=== PATIENT | male | born 1965 | race Caucasian/White ===

== ENCOUNTER 2020-07-06 09:01 | Emergency (ER) | payer BC ==
--- NOTE | 2020-07-06 09:06 | EDM.PDOC ---
ED HPI GENERAL MEDICAL PROBLEM - General Chief Complaint: Upper Extremity Injury/Pain Stated Complaint: right shoulder pain Time Seen by Provider: 07/06/20 09:05 Source of Information: Reports: Patient. Denies: Old Records (No [facility] records available) History Limitations: Reports: No Limitations - History of Present Illness INITIAL COMMENTS - FREE TEXT/NARRATIVE: The patient was brought to the emergency room via basic ambulance transfer with EMT accompaniment with no treatment in route. Note that the patient slipped on some snow and ice off of his truck about 5 feet landing on his right scapular and back region with patient complaining of 10/10 discomfort in this area. He is right-handed and has not injured these areas in the past. He denies any head injury, loss of consciousness, change in mental status, neurological deficits, or other complaints or injuries. The patient denies any chest pain/pressure, heart flutter, orthostasis, orthopnea, paresthesias, recent decreased exercise tolerance, or any other anginal-type symptoms, although the patient was somewhat hypotensive, dizzy and diaphoretic secondary to his pain after the above fall. He did have the breath briefly knocked out of him. The patient also denies any recent fever, cough, wheezing, dyspnea, etc., although moderate posterior right ribs and chest wall pain with inspiration. No recent history of abdominal pain, heartburn, nausea, diarrhea, melena, gross hematochezia, or any food intolerance, including fatty foods, etc.. Onset: Today, Sudden Onset Date: 07/06/20 Onset Time: 07:00 Duration: Constant Location: Reports: Chest (Posterior right chest wall, rib, and scapular region). Denies: Head, Face, Neck, Abdomen, Back, Pelvis, Upper Extremity, Left, Upper Extremity, Right, Radiates to Quality: Reports: Sharp Severity: Severe Improves with: Reports: Rest Worsens with: Reports: Movement Context: Reports: Trauma (As above). Denies: Sick Contact Associated Symptoms: Reports: Chest Pain (Pleurisy as above), Diaphoresis (As above), Shortness of Breath (Briefly secondary to chest wall contusion). 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 [No Known Home Meds] 07/06/20 [History] Past Medical History HEENT History: Reports: Sinusitis, Other (See Below). Denies: Allergic Rhinitis, Cataract, Glaucoma, Hard of Hearing, Impaired Vision, Macular Degeneration, Otitis Media, Retinal Detachment Other HEENT History: Sinusitis requiring surgery as below. Nasal fracture at age 11. Cardiovascular History: Reports: None. Denies: Afib, Aneurysm, Arrhythmia, Blood Clots/VTE/DVT, CAD, Heart Failure, Heart Murmur, High Cholesterol, Hypertension, [place], PVD, Syncope Respiratory History: Reports: Intubation, Previous, Sleep Apnea, Other (See Below). Denies: Asthma, Bronchitis, Recurrent, COPD, Intubation, Difficult, PE, Pneumonia, Recurrent, Pneumothorax, TB Other Respiratory History: Patient is not currently using CPAP. Gastrointestinal History: Reports: None. Denies: Celiac Disease, Cholelithiasis, Chronic Constipation, Colon Polyp, Diverticulosis, Fecal Incontinence, Gastritis, GERD, GI Bleed, Inflammatory Bowel Disease, Irritable Bowel Syndrome, Jaundice, Pancreatitis, PUD Genitourinary History: Reports: None. Denies: Acute Renal Failure, BPH, Chronic Renal Insuffiency, Renal Calculus, Retention, Urinary, STD, Urinary Incontinence, UTI, Recurrent Musculoskeletal History: Reports: Arthritis, Fracture, Neck Pain, Chronic, Osteoarthritis, Other (See Below). Denies: Amputation, Gout, RA, SLE Other Musculoskeletal History: Digit #5 of the left foot at about age 13. Neurological History: Reports: None. Denies: Cerebral Aneurysms, Concussion, Headaches, Chronic, Head Trauma, Migraines, MS, Neuropathy, Peripheral, Parkinson's, Seizure, TIA Psychiatric History: Reports: None. Denies: Abuse, Victim of, ADD, ADHD, Addiction, Anxiety, Depression, Psych Hospitalization(s), Psychosis, PTSD, Suicide Attempt, Suicidal Ideation Endocrine/Metabolic History: Reports: Obesity/BMI 30+. Denies: Diabetes, Type I, Diabetes, Type II, Diabetes Mellitus, Type 3c, Hypothyroidism, IDDM Hematologic History: Reports: None. Denies: Anemia, Blood Transfusion(s), Iron Deficiency Immunologic History: Reports: None. Denies: AIDS, HIV, SLE Oncologic (Cancer) History: Reports: None. Denies: Basal Cell Carcinoma, Colon, Hodgkin's Lymphoma, Leukemia, Lymphoma, Malignant Melanoma, Non-Hodgkin's Lymphoma, Prostate Dermatologic History: Reports: None. Denies: Eczema, Psoriasis - Infectious Disease History Infectious Disease History: Reports: Chicken Pox. Denies: Measles, Meningitis, Mononucleosis, MRSA, Mumps, Novel Coronavirus, Pertussis (Whooping Cough), Rheumatic Fever, Rubella, Scarlet Fever, Shingles, TB, VRE - Past Surgical History Head Surgeries/Procedures: Reports: None HEENT Surgical History: Reports: Adenoidectomy, Naso-Sinus Surgery, Oral Surgery, Tonsillectomy, Other (See Below). Denies: Cataract Surgery, Eye Surgery, Laser Surgery, LASIK, Myringotomy w Tube(s) Other HEENT Surgeries/Procedures: Tonsillectomy and adenoidectomy at about age 5. Sinus surgery in February 2020. [place] teeth extraction x4 in his 20s. Cardiovascular Surgical History: Reports: None. Denies: Varicose Respiratory Surgical History: Reports: None. Denies: Thoracentesis GI Surgical History: Reports: Colonoscopy, Hernia, Abdominal, Other (See Below). Denies: Appendectomy, Cholecystectomy, EGD, Hernia, Inguinal, Hernia Repair/Other, Polypectomy Other GI Surgeries/Procedures: Normal colonoscopy in 2019. Abdominal ventral hernia and umbilical hernia repair in his 30s. Male Surgical History: Reports: Circumcision, Other (See Below). Denies: Vasectomy Other Male Surgeries/Procedures: Circumcision as an . Endocrine Surgical History: Reports: None. Denies: Thyroid Biopsy Neurological Surgical History: Reports: None. Denies: C-Spine, Discectomy, Laminectomy, Lumbar Spine, Sacral Spine, Spinal Fusion, Thoracic Spine, Vertebroplasty Musculoskeletal Surgical History: Reports: Carpal Tunnel, Other (See Below). Denies: Arthroscopic Knee, Arthroscopic Procedure, Ganglion Cyst, Joint Replacement, ORIF, Shoulder Surgery Other Musculoskeletal Surgeries/Procedures:: Left carpal tunnel release in his 30s. Oncologic Surgical History: Reports: None Dermatological Surgical History: Reports: None Social & Family History - Tobacco Use Tobacco Use Status *Q: Former Tobacco User Tobacco Use Within Last Twelve Months: No Years of Tobacco use: 27 Packs/Tins Daily: 2 Packs/Tins Daily Comment: Smoked between ages 11 and 38. Used Tobacco, but Quit: No Smoking Cessation Information Provided To Patient: No Second Hand Smoke Exposure: No Second Hand Smoke Education Provided: No - Caffeine Use Caffeine Use: Reports: Coffee (2 cups/day), Soda (1 soda every couple of weeks.). Denies: Energy Drinks, Tea - Alcohol Use Alcohol Use History: Yes Days Per Week of Alcohol Use: 0 Number of Drinks Per Day: 3 Number of Drinks Per Day Comment: Usually beer on a monthly basis. No previous DWIs, problems with alcohol abuse, etc. Total Drinks Per Week: 0 Alcohol Use in Last Twelve Months: Yes - Recreational Drug Use Recreational Drug Use: No Drug Use in Last 12 Months: No Recreational Drug Type: Denies: Amphetamines (Speed), Cocaine, Heroin, Inhalants (Glues, Solvents, Aerosols), LSD (Acid), Marijuana/Hashish, Methamphetamine, Morphine, Oxycodone - Living Situation & Occupation Living situation: Reports: ( in 2015.), ( Divorce from the other 2 wives. 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 ED EXAM, GENERAL - Physical Exam Exam: See Below Exam Limited By: No Limitations General Appearance: Alert, WD/WN, No Apparent Distress, Anxious (Mild secondary to injury) Eye Exam: Bilateral Eye: EOMI, Normal Inspection (No vertigo or nystagmus), PERRL Ears: Normal External Exam, Normal Canal, Hearing Grossly Normal, Normal TMs Nose: Normal Inspection, Normal Mucosa, No Blood Throat/Mouth: Normal Inspection, Normal Lips, Normal Teeth, Normal Gums, Normal Oropharynx, Normal Voice, No Airway Compromise. No: Dysphagia, Perioral Cyanosis Head: Atraumatic, Normocephalic. No: Facial Swelling, Facial Tenderness, Sinus Tenderness Neck: Normal Inspection, Supple, Non-Tender, Full Range of Motion. No: Lymp hadenopathy (L), Lymphadenopathy (R), Thyromegaly Respiratory/Chest: No Respiratory Distress, Lungs Clear. No: Chest Non-Tender (Right medial lower chest wall, rib, and scapular region with no significant swelling, ecchymosis, crepitation, deformity, or sign of fracture), Pleural Rub, Retractions Cardiovascular: Normal Peripheral Pulses, Regular Rate, Rhythm, No Edema, No Gallop, No JVD, No Murmur, No Rub. No: Gallop/S3, Gallop/S4, Friction Rub Peripheral Pulses: 2+: Radial (L), Radial (R) GI/Abdominal: Normal Bowel Sounds, Soft, Non-Tender, No Organomegaly, No Distention, No Abnormal Bruit, No Mass, Pelvis Stable (Male) Exam: Deferred Rectal (Males) Exam: Deferred Back Exam: Normal Inspection, Full Range of Motion. No: CVA Tenderness (L), CVA Tenderness (R), Muscle Spasm, Paraspinal Tenderness, Vertebral Tenderness Extremities: Normal Inspection, Normal Range of Motion, Non-Tender, No Pedal Edema, Normal Capillary Refill. No: Darrell's Sign Neurological: Alert, Oriented, CN II-XII Intact, Normal Cognition, Normal Gait (Although limited secondary to his chest and rib pain as above), Normal Reflexes, No Motor/Sensory Deficits Psychiatric: Anxious (Mild shortly after arrival secondary to injury and discomfort however resolved prior to discharge). No: Depressed Mood Skin Exam: Warm, Dry, Intact, Normal Color, No Rash. No: Diaphoretic, Ecchymosis, Wound/Incision Lymphatic: No Adenopathy Course - Vital Signs Last Recorded V/S: Last Vital Signs Temp 36.8 C 07/06/20 09:08 Pulse 65 07/06/20 09:08 Resp 20 07/06/20 11:59 BP 131/77 07/06/20 11:59 Pulse Ox 70 L 07/06/20 11:59 Vital Signs - 24 hr 07/06/20 07/06/20 07/06/20 09:08 09:30 09:45 Temperature [ 36.8 C Temporal] Pulse, 65 Peripheral [ Pulse Oximetry] Respiratory 24 H 22 H 20 Rate Blood Pressure 123/69 133/79 123/75 [Right Upper Arm] O2 Sat by Pulse 95 94 L 94 L Oximetry 07/06/20 07/06/20 07/06/20 10:00 10:15 10:30 Temperature [ Temporal] Pulse, Peripheral [ Pulse Oximetry] Respiratory 21 H 22 H 23 H Rate Blood Pressure 160/72 H 127/82 144/85 H [Right Upper Arm] O2 Sat by Pulse 93 L 91 L 95 Oximetry 07/06/20 07/06/20 07/06/20 10:45 11:00 11:15 Temperature [ Temporal] Pulse, Peripheral [ Pulse Oximetry] Respiratory 22 H 22 H 21 H Rate Blood Pressure 140/82 137/81 136/82 [Right Upper Arm] O2 Sat by Pulse 97 96 97 Oximetry 07/06/20 07/06/20 11:30 11:59 Temperature [ Temporal] Pulse, Peripheral [ Pulse Oximetry] Respiratory 22 H 20 Rate Blood Pressure 135/77 131/77 [Right Upper Arm] O2 Sat by Pulse 97 70 L Oximetry - Orders/Labs/Meds Orders: Active Orders 24 hr Category Date Time Status Cardiac Monitoring [RC] . DIRECTED Care 07/06/20 09:07 Active Peripheral IV Care [RC] . DIRECTED Care 07/06/20 09:07 Active Ribs 2V w Chest Rt [CR] Stat Exams 07/06/20 09:08 Taken Scapula Rt [CR] Stat Exams 07/06/20 09:08 Taken Sodium Chloride 0.9% [Saline Flush] Med 07/06/20 09:07 Active 10 ml FLUSH ASDIRECTED PRN Obtain Past Medical Record [OM.PC] Routine Oth 07/06/20 09:07 Active Peripheral IV Insertion Adult [OM.PC] Routine Oth 07/06/20 09:07 Ordered Medication Orders Sodium Chloride (Sodium Chloride 0.9% 10 Ml Syringe) 10 ml FLUSH ASDIRECTED PRN PRN Reason: Keep Vein Open Last Admin: 07/06/20 10:59 Dose: 10 ml Documented by: YELITZA Labs: Laboratory Tests 07/06/20 07/06/20 Range/Units 07:20 07:20 WBC 14.1 H (4.0-10.2) K/uL RBC 5.07 (4.33-5.41) M/uL Hgb 14.8 (13.1-16.8) g/dL Hct 43.4 (39.0-49.0) % MCV 85.6 (84.0-98.0) fL MCH 29.2 (28.2-33.3) pg MCHC 34.1 (31.7-36.0) g/dL RDW 13.1 (11.2-14.1) % Plt Count 266 (150-350) K/uL Neut % (Auto) 79.4 (45.0-80.0) % Lymph % (Auto) 14.9 (10.0-50.0) % [place] % (Auto) 5.1 (2.0-14.0) % Eos % (Auto) 0.4 (0.0-5.0) % Baso % (Auto) 0.2 (0.0-2.0) % Neut # (Auto) 11.21 H (1.40-7.00) K/uL Lymph # (Auto) 2.11 (0.50-3.50) K/uL [place] # (Auto) 0.72 (0.00-1.00) K/uL Eos # (Auto) 0.05 (0.00-0.50) K/uL Baso # (Auto) 0.03 (0.00-0.20) K/uL Sodium 138 (136-145) mmol/L Potassium 4.4 (3.5-5.1) mmol/L Chloride 104 (98-107) mmol/L Carbon Dioxide 24.2 (21.0-32.0) mmol/L BUN 22 H (7-18) mg/dL Creatinine 1.00 (0.51-1.17) mg/dL Est Cr Clr Drug Dosing TNP Estimated GFR (MDRD) > 60 mL/min Glucose 144 H (70-99) mg/dL Calcium 8.8 (8.5-10.1) mg/dL Total Bilirubin 0.8 (0.2-1.0) mg/dL AST 33 (15-37) U/L ALT 54 (12-78) U/L Alkaline Phosphatase 93 (46-116) IU/L Total Protein 7.5 (6.4-8.2) g/dL Albumin 4.1 (3.4-5.0) g/dL Meds: Medications Generic Name Dose Route Start Last Admin Trade Name Freq PRN Reason Stop Dose Admin Sodium Chloride 10 ml 07/06/20 09:07 07/06/20 10:59 Sodium Chloride 0.9% 10 Ml Syringe FLUSH 10 ml ASDIRECTED PRN Administration Keep Vein Open Discontinued Medications Generic Name Dose Route Start Last Admin Trade Name Freq PRN Reason Stop Dose Admin Famotidine 40 mg 07/06/20 10:56 07/06/20 10:59 Famotidine 20 Mg/2 Ml Sdv IVPUSH 07/06/20 10:57 40 mg ONETIME ONE Administration Hydromorphone HCl 1 mg 07/06/20 09:07 07/06/20 09:16 Hydromorphone 1 Mg/Ml Syringe IVPUSH 07/06/20 09:08 1 mg ONETIME ONE Administration Lactated Ringer's 1,000 mls @ 999 mls/hr 07/06/20 09:08 07/06/20 09:16 Ringers, Lactated IV 07/06/20 10:08 999 mls/hr .BOLUS ONE Administration Ketorolac Tromethamine 30 mg 07/06/20 10:56 07/06/20 10:59 Ketorolac 30 Mg/Ml Sdv IVPUSH 07/06/20 10:57 30 mg ONETIME ONE Administration Ondansetron HCl 4 mg 07/06/20 09:07 07/06/20 09:15 Ondansetron 4 Mg/2 Ml Sdv IVPUSH 07/06/20 09:08 4 mg ONETIME ONE Administration - Radiology Interpretation Free Text/Narrative:: staff analyst shows normal sinus rhythm with heart rate in the 60s to 70s with no ectopy or arrhythmia X-rays of the right scapula, complete, shows no evidence of fracture or thoracic injury based on limited view X-rays of the right ribs including additional 1 view of the chest shows no evidence of rib fracture, pneumothorax, pulmonary infiltrates, cardiomegaly, CHF, etc. Departure - Departure Time of Disposition: 13:30 Disposition: Home, Self-Care 01 Condition: Good Clinical Impression: Trauma Chest wall contusion Qualifiers: Encounter type: initial encounter Laterality: right Qualified Code(s): S20.211A - Contusion of right front wall of thorax, initial encounter Contusion, scapular region Qualifiers: Encounter type: initial encounter Laterality: right Qualified Code(s): S40.011A - Contusion of right shoulder, initial encounter Osteoarthritis Qualifiers: Osteoarthritis location: multiple joints Osteoarthritis type: primary Qualified Code(s): M89.49 - Other hypertrophic osteoarthropathy, multiple sites - Discharge Information *PRESCRIPTION DRUG MONITORING PROGRAM REVIEWED*: Not Applicable *COPY OF PRESCRIPTION DRUG MONITORING REPORT IN PATIENT ALEKSANDRA: Not Applicable Instructions: Contusion Referrals: PCP,Unknown [Primary Care Provider] - Forms: ED Department Discharge Additional Instructions: 1. Follow up with your regular provider in 3-5 days as directed for reevaluation and recommended repeat CBC. Bring these discharge instructions with you to that visit. 2. Tylenol 650 mg by mouth every 4 hours and/or OTC ibuprofen 2-3 tabs by mouth every 6 hours with food as directed./needed. You may stagger these medications for 48-72 hours only, which essentially means that you are receiving a pain medication about every 2 hours. 3. BenGay or equivalent, heating pad, and/or ice packs as directed. 4. Immediately after this visit verify that your cellular telephone's voicemail has been activated and is empty. Also verify that your home telephone's answering machine is operating properly and has space to receive messages. Note that it is sometimes necessary for us to be able to contact you at a later date to discuss your medical care. 5. Please remember that we are ALWAYS here for you and want to answer any questions you may have. Feel free to call the hospital any time and we call you back JORDON. 6. Sedation precautions with no driving, etc. for 18 hours because of emergency room medications. Sepsis Event Note (ED) - Focused Exam Vital Signs: Vital Signs Temp Pulse Resp BP Pulse Ox 07/06/20 11:59 20 131/77 70 L 07/06/20 11:30 22 H 135/77 97 07/06/20 11:15 21 H 136/82 97 07/06/20 11:00 22 H 137/81 96 07/06/20 10:45 22 H 140/82 97 07/06/20 10:30 23 H 144/85 H 95 07/06/20 10:15 22 H 127/82 91 L 07/06/20 10:00 21 H 160/72 H 93 L 07/06/20 09:45 20 123/75 94 L 07/06/20 09:30 22 H 133/79 94 L 07/06/20 09:08 36.8 C 65 24 H 123/69 95 - Problem List & Annotations (1) Trauma SNOMED Code(s): 879939233 Code(s): T14.90XA - INJURY, UNSPECIFIED, INITIAL ENCOUNTER Status: Acute Priority: High Current Visit: Yes Onset Date: 07/06/20 Annotation/Comment:: A trauma code was immediately considered in this patient secondary to the mechanism of injury, however based on the clinical presentation of the patient, previous history, etc. this provider did not feel that a trauma code would affect the patient's level of care and was not warranted. Minor trauma with chest wall, rib, and right scapular contusions as above/below. Note the patient was mildly diaphoretic secondary to his discomfort with blood pressure of 91/71 initially by the development trainer on the scene however improvement to 116/86 prior to arrival. A 1 L IV bolus of lactated Ringer's was given in the emergency room. Note additional pain control with IV Dilaudid and IV Toradol with excellent results. 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 Activity restrictions were extensively discussed. Symptomatic relief as per discharge instructions. His did pick him up, however delayed discharge from our emergency room secondary to the patient's having to drive from [place]. Clinical exam and vital signs were stable and appropriate prior to discharge. Note leukocytosis likely secondary to stress reaction with close follow-up by his regular provider as per discharge instructions. Note that the accident occurred at [facility]. (2) Chest wall contusion SNOMED Code(s): 69630467 Code(s): S20.219A - CONTUSION OF UNSPECIFIED FRONT WALL OF THORAX, INIT ENCNTR Status: Chronic Priority: High Current Visit: Yes Onset Date: 07/06/20 Annotation/Comment:: As above Qualifiers: Encounter type: initial encounter Laterality: right Qualified Code(s): S20.211A - Contusion of right front wall of thorax, initial encounter (3) Contusion, scapular region SNOMED Code(s): 83660974 Code(s): S40.019A - CONTUSION OF UNSPECIFIED SHOULDER, INITIAL ENCOUNTER Status: Acute Current Visit: Yes Onset Date: 07/06/20 Annotation/Comment:: As above Qualifiers: Encounter type: initial encounter Laterality: right Qualified Code(s): S40.011A - Contusion of right shoulder, initial encounter (4) Osteoarthritis SNOMED Code(s): 170879727 Code(s): M19.90 - UNSPECIFIED OSTEOARTHRITIS, UNSPECIFIED SITE Status: Chronic Priority: Medium Current Visit: Yes Annotation/Comment:: Otherwise stable by history with no evidence of other injuries. Qualifiers: Osteoarthritis location: multiple joints Osteoarthritis type: primary Qualified Code(s): M89.49 - Other hypertrophic osteoarthropathy, multiple sites - Problem List Review Problem List Initiated/Reviewed/Updated: Yes - My Orders Last 24 Hours: My Active Orders 07/06/20 09:07 Cardiac Monitoring [RC] . DIRECTED Peripheral IV Care [RC] . DIRECTED Sodium Chloride 0.9% [Saline Flush] 10 ml FLUSH ASDIRECTED PRN Obtain Past Medical Record [OM.PC] Routine Peripheral IV Insertion Adult [OM.PC] Routine 07/06/20 09:08 Ribs 2V w Chest Rt [CR] Stat Scapula Rt [CR] Stat - Assessment/Plan Last 24 Hours: My Active Orders 07/06/20 09:07 Cardiac Monitoring [RC] . DIRECTED Peripheral IV Care [RC] . DIRECTED Sodium Chloride 0.9% [Saline Flush] 10 ml FLUSH ASDIRECTED PRN Obtain Past Medical Record [OM.PC] Routine Peripheral IV Insertion Adult [OM.PC] Routine 07/06/20 09:08 Ribs 2V w Chest Rt [CR] Stat Scapula Rt [CR] Stat Assessment:: As above Plan: As above. Extensive precautions were given to the patient, who is in agreement with the treatment plan. See Patient Instructions for further treatment and plan.
[2020-07-06] MEDS: Ondansetron 4 MG/2 ML SDV IVPUSH ONE (09:15)
[2020-07-06] MEDS: Lactated Ringers 1,000 ML IV ONE (09:16)
[2020-07-06] MEDS: HYDROmorphone 1 MG/ML Syringe IVPUSH ONE ×2 (09:16→13:51)
[2020-07-06 09:39] LABS: CHLORIDE,CL 104 mmol/L (98-107); SODIUM,NA 138 mmol/L (136-145)
[2020-07-06] MEDS: Sodium Chloride 0.9% 10 ML Syringe FLUSH PRN (10:59)
[2020-07-06] MEDS: Famotidine 20 MG/2 ML SDV IVPUSH ONE (10:59)
[2020-07-06] MEDS: Ketorolac 30 MG/ML SDV IVPUSH ONE (10:59)
== END 2020-07-06 14:00 | disposition home or self-care (01) ==
LOC: LL.ED 09:01
DX: S40.011A Contusion of right shoulder, initial encounter (principal); S20.211A Contusion of right front wall of thorax, initial encounter; M89.49 Other hypertrophic osteoarthropathy, multiple sites; E66.9 Obesity, unspecified; Z68.38 Body mass index [BMI] 38.0-38.9, adult; Z87.891 Personal history of nicotine dependence; W00.0XXA Fall on same level due to ice and snow, initial encounter
CPT/HCPCS: 36415; 71101-RT; 73010-RT; 80053; 85025; 96374; 96375; 96376; 99283; 99284-25; J1170; J1885; J2405; J3490; J7120